=== PATIENT | male | born 1980 | race Caucasian/White ===

== ENCOUNTER 2018-09-28 09:12 | Inpatient (IN) | payer OTHER ==
[2018-09-28 11:51] VITALS: BMI 29.9
--- NOTE | 2018-09-28 11:55 | HP ---
COWS - Scale Resting Pulse: 1= OR 81-100 Sweatin= Chills/Flushing Restless Observation: 3= Extraneous Movement Pupil Size: 1= Pupils >than Normal Bone or Joint Aches: 2= Severe Diffuse Aches Runny Nose/ Eye Tearin= Runny Nose/Eyes GI Upset > 30mins: 2= Nausea/Diarrhea Tremor Observation: 2= Slight Tremor Visible Yawning Observation: 1= 1-2x During Session Anxiety or Irritability: 2=Irritable/Anxious Goose Flesh Skin: 0=Smooth Skin COWS Score: 17 CIWA Score - Admission Criteria [facility]ASAS Guidelines: Admission for Medically Managed Detox: Requires at least one of the followin. CIWA greater than 12 2. Seizures within the past 24 hours 3. Delirium tremens within the past 24 hours 4. Hallucinations within the past 24 hours 5. Acute intervention needed for co occurring medical disorder 6. Acute intervention needed for co occurring psychiatric disorder 7. Severe withdrawal that cannot be handled at a lower level of care (continued vomiting, continued diarrhea, abnormal vital signs) requiring intravenous medication and/or fluids 8. Admission ROS S - HPI Chief Complaint: i need help to stop using heroin,marijuana,cocaine Allergies/Adverse Reactions: Allergies Allergy/AdvReac Type Severity Reaction Status Date / Time No Known Allergies Allergy Verified 09/28/18 11:51 History of Present Illness: this 38 years old male with heroin,cocaine and marijuana dependence,seeking detox,withdrawal symptom,last detox 03/08 in [place] nicotine dependence longest period of sobriety 2 years Exam Limitations: No Limitations - Ebola screening Have you traveled outside of the country in the last 21 days: No (N) Have you had contact with anyone from an Ebola affected area: No Do you have a fever: No - Review of Systems Constitutional: Chills, Loss of Appetite, Malaise, Night Sweats, Changes in sleep, Weakness EENT: reports: Tearing, Nose Congestion Respiratory: reports: No Symptoms reported Cardiac: reports: Palpitations GI: reports: Diarrhea, Nausea, Vomiting, Abdominal cramping : reports: No Symptoms Reported Musculoskeletal: reports: Back Pain, Joint Pain, Muscle Pain, Joint Stiffness Integumentary: reports: Dryness Neuro: reports: Headache, Tremors Endocrine: reports: No Symptoms Reported Hematology: reports: No Symptoms Reported Psychiatric: reports: No Sypmtoms Reported, Judgement Intact, Mood/Affect Appropiate, Orientated x3 Patient History - Patient Medical History Hx Anemia: No Hx Asthma: No Hx Chronic Obstructive Pulmonary Disease (COPD): No Hx Cancer: No Hx Cardiac Disorders: No Hx Congestive Heart Failure: No Hx Hypertension: No Hx Hypercholesterolemia: No Hx Pacemaker: No HX Cerebrovascular Accident: No Hx Seizures: No Hx Dementia: No Hx Diabetes: No Hx Gastrointestinal Disorders: No Hx Liver Disease: No Hx Genitourinary Disorders: No Hx Sexually Transmitted Disorders: No Hx Renal Disease (ESRD): No Hx Thyroid Disease: No Hx Human Immunodeficiency Virus (HIV): No (last 08/08 negative) Hx Hepatitis C: No Hx Depression: No Hx Suicide Attempt: No Hx Bipolar Disorder: No Hx Schizophrenia: No Other Medical History: no suicidal,no homicidal - Patient Surgical History Past Surgical History: No - PPD History Previous Implant?: Yes Documented Results: Negative w/o proof Implanted On Prior [facility] Admission?: No PPD to be Administered?: Yes - Smoking Cessation Smoking history: Current every day smoker Have you smoked in the past 12 months: Yes Aproximately how many cigarettes per day: 20 Cigars Per Day: 0 Hx Chewing Tobacco Use: No Initiated information on smoking cessation: Yes 'Breaking Loose' booklet given: 09/28/18 - Substance & Tx. History Hx Alcohol Use: No Hx Substance Use: Yes Substance Use Type: Cocaine, Heroin, Marijuana Hx Substance Use Treatment: Yes (03/08 in [place]) - Substances Abused Heroin Route: Inhalation Frequency: Daily Amount used: 10 bags Age of first use: 36 Date of Last Use: 09/27/18 Marijuana/Hashish Route: Smoking Frequency: Daily Amount used: 20$ Age of first use: 17 Date of Last Use: 09/26/18 Cocaine Route: Inhalation Frequency: 1-2 times per week Amount used: 50$ Age of first use: 18 Date of Last Use: 09/25/18 Family Disease History - Family Disease History Family History: Denies Admission Physical Exam [facility] - Physical General Appearance: Yes: Moderate Distress, Tremorous, Irritable, Sweating, Anxious HEENTM: Yes: Normal ENT Inspection, Normocephalic, SERAFIN, Pharynx Normal Respiratory: Yes: Lungs Clear, Normal Breath Sounds, No Respiratory Distress Neck: Yes: Within Normal Limits, Supple, Trachea in good position Breast: Yes: Within Normal Limits Cardiology: Yes: Within Normal Limits, Regular Rhythm, Regular Rate, S1, S2 Abdominal: Yes: Within Normal Limits, Normal Bowel Sounds, Non Tender, Soft Genitourinary: Yes: Within Normal Limits Musculoskeletal: Yes: full range of Motion, Back pain, Joint Stiffness, Muscle Pain Extremities: Yes: Tremors 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
[2018-09-28] MEDS ORDERED: MAG HYDROX/AL HYDROX/SIMETH 30 ML UNIT-DOSE CUP PO PRN (12:04)
[2018-09-28] MEDS ORDERED: IBUPROFEN 400 MG TABLET (FP) PO PRN (12:04)
[2018-09-28] MEDS ORDERED: P-EPHED 60MG/TRIPROLIDI 2.5MG TABLET PO PRN (12:04)
[2018-09-28] MEDS ORDERED: guaiFENesin/D-METHORPHAN HB 10 ML UNIT-DOSE CUPS PO PRN (12:04)
[2018-09-28] MEDS ORDERED: MAGNESIUM HYDROX 2400MG/30ML ORAL SUSPENSION 30 ML CUP PO PRN (12:04)
[2018-09-28] MEDS ORDERED: MENTHOL/PHENOL 1 EACH UD MM PRN (12:04)
[2018-09-28] MEDS ORDERED: MAGNESIUM CITRATE 300 ML BOTTLE PO PRN (12:04)
[2018-09-28] MEDS ORDERED: LOPERAMIDE HCL 2 MG CAPSULE PO PRN (12:04)
[2018-09-28] MEDS ORDERED: ACETAMINOPHEN 325 MG TABLET (FP) PO PRN (12:04)
[2018-09-28] MEDS ORDERED: NICOTINE POLACRILEX 2 MG GUM BUC PRN (12:07)
[2018-09-28] MEDS: diazePAM 5 MG TABLET PO PRN ×3 (13:12→22:12)
[2018-09-28] MEDS: NICOTINE 21 MG/24 HOURS TOPICAL PATCH TD SCH (13:16)
[2018-09-28] MEDS ORDERED: METHADONE HCL 10 MG TABLET (FOR DETOX USE ONLY) PO ONE ×2 (13:30→23:00)
[2018-09-28 18:00] LABS: URINE APPEARANCE CLEAR; URINE BILIRUBIN NEGATIVE (<2.0 mg/dL); URINE COLOR YELLOW; URINE GLUCOSE (UA) NEGATIVE (NEGATIVE); URINE KETONE NEGATIVE (NEGATIVE); URINE LEUK ESTERASE NEGATIVE (NEGATIVE); URINE NITRITE NEGATIVE (NEGATIVE); URINE PROTEIN NEGATIVE (NEGATIVE); URINE UROBILINOGEN NEGATIVE mg/dL (0.2-1.0)
--- NOTE | 2018-09-28 21:16 | EKG ---
Test Reason : Blood Pressure : / mmHG Vent. Rate : 052 BPM Atrial Rate : 052 BPM P-R Int : 162 ms QRS Dur : 092 ms QT Int : 456 ms P-R-T Axes : 004 031 -02 degrees QTc Int : 424 ms SINUS BRADYCARDIA OTHERWISE NORMAL ECG NO PREVIOUS ECGS AVAILABLE Confirmed by STEFAN PUGA, MARIELA ([id number]) on 09/28/2018 9:16:27 PM Referred By: Confirmed By:MARIELA AVILES MD
[2018-09-28] MEDS: CYCLOBENZAPRINE HCL 10 MG TABLET (FP) PO PRN (22:12)
[2018-09-28] MEDS: MELATONIN 5 MG TABLETS PO PRN (22:12)
[2018-09-28] MEDS: THIAMINE HCL 100 MG TABLET (FP) PO SCH (22:12)
[2018-09-29] MEDS ORDERED: METHADONE HCL 10 MG TABLET (FOR DETOX USE ONLY) PO ONE (10:00)
[2018-09-29] MEDS: PRENATAL VITAMINS W/ FOLIC ACID TABLET (FP) PO SCH (10:34)
[2018-09-29] MEDS: diazePAM 5 MG TABLET PO PRN ×3 (10:34→22:04)
[2018-09-29 10:35] LABS: HEMATOCRIT 35.4 % (35.4-49); HEMOGLOBIN 12.5 GM/dL (11.7-16.9); MCH 34.8 pg (25.7-33.7); MCHC 35.4 g/dl (32.0-35.9); MEAN CELL VOLUME 98.2 fl (80-96); MEAN PLT VOLUME 7.9 fl (7.5-11.1); PLATELET COUNT 315 K/MM3 (134-434); RDW 12.5 % (11.9-15.9); WHITE BLOOD COUNT 7.5 K/mm3 (4.0-10.0)
[2018-09-29] MEDS: NICOTINE 21 MG/24 HOURS TOPICAL PATCH TD SCH (10:36)
[2018-09-29 11:16] LABS: ALBUMIN 2.9 g/dl (3.4-5.0); ALK PHOS 105 U/L (45-117); ANION GAP 7 MMOL/L (8-16); BILIRUBIN,TOTAL 0.1 mg/dL (0.2-1); BLOOD UREA NITROGEN 15 mg/dL (7-18); CALCIUM 8.1 mg/dL (8.5-10.1); CHLORIDE 104 mmol/L (98-107); CO2 30 mmol/L (21-32); CREATININE 1.1 mg/dL (0.55-1.3); GLUCOSE,RANDOM 103 mg/dL (74-106); POTASSIUM 3.8 mmol/L (3.5-5.1); SGOT/AST 27 U/L (15-37); SGPT/ALT 41 U/L (13-61); SODIUM 141 mmol/L (136-145); TOT PROT 5.5 g/dl (6.4-8.2)
--- NOTE | 2018-09-29 15:54 | PN ---
BHS COWS - Scale Resting Pulse: 0= [place] 80 or Below Sweatin= Chills/Flushing Restless Observation: 1= Difficult to Sit Still Pupil Size: 1= Pupils >than Normal Bone or Joint Aches: 2= Severe Diffuse Aches Runny Nose/ Eye Tearin= Nasal Congestion GI Upset > 30mins: 2= Nausea/Diarrhea Tremor Observation of Outstretched Hands: 2= Slight Tremor Visible Yawning Observation: 2= >3x During Session Anxiety or Irritability: 1=Feels Anxious/Irritable Goose Flesh Skin: 0=Smooth Skin COWS Score: 13 BHS Progress Note (SOAP) Subjective: sweat tremor body aches joints pain restlessness Objective: 09/29/18 15:52 Vital Signs Temperature 97.7 F 09/29/18 15:24 Pulse Rate 62 09/29/18 15:24 Respiratory Rate 18 09/29/18 15:24 Blood Pressure 109/58 L 09/29/18 15:24 O2 Sat by Pulse Oximetry (%) Laboratory Last Values WBC 7.5 K/mm3 (4.0-10.0) 09/29/18 07:15 RBC 3.60 M/mm3 (4.00-5.60) L 09/29/18 07:15 Hgb 12.5 GM/dL (11.7-16.9) 09/29/18 07:15 Hct 35.4 % (35.4-49) 09/29/18 07:15 MCV 98.2 fl (80-96) H 09/29/18 07:15 MCH 34.8 pg (25.7-33.7) H 09/29/18 07:15 MCHC 35.4 g/dl (32.0-35.9) 09/29/18 07:15 RDW 12.5 % (11.9-15.9) 09/29/18 07:15 Plt Count 315 K/MM3 (134-434) 09/29/18 07:15 MPV 7.9 fl (7.5-11.1) 09/29/18 07:15 Sodium 141 mmol/L (136-145) 09/29/18 07:15 Potassium 3.8 mmol/L (3.5-5.1) 09/29/18 07:15 Chloride 104 mmol/L (98-107) 09/29/18 07:15 Carbon Dioxide 30 mmol/L (21-32) 09/29/18 07:15 Anion Gap 7 MMOL/L (8-16) L 09/29/18 07:15 BUN 15 mg/dL (7-18) 09/29/18 07:15 Creatinine 1.1 mg/dL (0.55-1.3) 09/29/18 07:15 Creat Clearance w eGFR > 60 (>60) 09/29/18 07:15 Random Glucose 103 mg/dL (74-106) 09/29/18 07:15 Calcium 8.1 mg/dL (8.5-10.1) L 09/29/18 07:15 Total Bilirubin 0.1 mg/dL (0.2-1) L 09/29/18 07:15 AST 27 U/L (15-37) 09/29/18 07:15 ALT 41 U/L (13-61) 09/29/18 07:15 Alkaline Phosphatase 105 U/L (45-117) 09/29/18 07:15 Total Protein 5.5 g/dl (6.4-8.2) L 09/29/18 07:15 Albumin 2.9 g/dl (3.4-5.0) L 09/29/18 07:15 Urine Color Yellow 09/28/18 14:44 Urine Appearance Clear 09/28/18 14:44 Urine pH 6.0 (5.0-8.0) 09/28/18 14:44 Ur Specific [place] 1.026 (1.010-1.035) 09/28/18 14:44 Urine Protein Negative (NEGATIVE) 09/28/18 14:44 Urine Glucose (UA) Negative (NEGATIVE) 09/28/18 14:44 Urine Ketones Negative (NEGATIVE) 09/28/18 14:44 Urine Blood Negative (NEGATIVE) 09/28/18 14:44 Urine Nitrite Negative (NEGATIVE) 09/28/18 14:44 Urine Bilirubin Negative (<2.0 mg/dL) 09/28/18 14:44 Urine Urobilinogen Negative mg/dL (0.2-1.0) 09/28/18 14:44 Ur Leukocyte Esterase Negative (NEGATIVE) 09/28/18 14:44 RPR Titer Nonreactive (NONREACTIVE) 12/09/18 07:15 HIV 1&2 Antibody Screen Negative 09/29/18 07:15 HIV P24 Antigen Negative 09/29/18 07:15 lab noted low Ca++ Assessment: 09/29/18 15:53 withdrawal sx hypocalcemia Plan: continue detox [facility]
[2018-09-29] MEDS: CALCIUM 250MG/VIT-D 125 UNITS 1 COMBO TABLET PO SCH (22:04)
[2018-09-29] MEDS: THIAMINE HCL 100 MG TABLET (FP) PO SCH (22:04)
[2018-09-29] MEDS: MELATONIN 5 MG TABLETS PO PRN (22:04)
[2018-09-29] MEDS: CYCLOBENZAPRINE HCL 10 MG TABLET (FP) PO PRN (22:04)
[2018-09-30] MEDS ORDERED: METHADONE HCL 5 MG TABLET (FOR DETOX USE ONLY) PO ONE (10:00)
[2018-09-30] MEDS: NICOTINE 21 MG/24 HOURS TOPICAL PATCH TD SCH (10:08)
[2018-09-30] MEDS: PRENATAL VITAMINS W/ FOLIC ACID TABLET (FP) PO SCH (10:08)
[2018-09-30] MEDS: CALCIUM 250MG/VIT-D 125 UNITS 1 COMBO TABLET PO SCH ×2 (10:08→22:36)
--- NOTE | 2018-09-30 10:33 | PN ---
BHS COWS - Scale Resting Pulse: 0= [place] 80 or Below Sweatin=Flushed/Facial Moisture Restless Observation: 1= Difficult to Sit Still Pupil Size: 0= Normal to Room Light Bone or Joint Aches: 2= Severe Diffuse Aches Runny Nose/ Eye Tearin= Runny Nose/Eyes GI Upset > 30mins: 0= None Tremor Observation of Outstretched Hands: 2= Slight Tremor Visible Yawning Observation: 2= >3x During Session Anxiety or Irritability: 2=Irritable/Anxious Goose Flesh Skin: 0=Smooth Skin COWS Score: 13 BHS Progress Note (SOAP) Subjective: agitation sweats shakes interrupted sleep body aches irritable Objective: 09/30/18 10:32 Vital Signs Temperature 98.5 F 09/30/18 09:41 Pulse Rate 65 09/30/18 09:41 Respiratory Rate 18 09/30/18 09:41 Blood Pressure 102/50 L 09/30/18 09:41 O2 Sat by Pulse Oximetry (%) Laboratory Tests 09/28/18 09/29/18 09/29/18 14:44 07:15 07:15 WBC 7.5 RBC 3.60 L Hgb 12.5 Hct 35.4 MCV 98.2 H MCH 34.8 H MCHC 35.4 RDW 12.5 Plt Count 315 MPV 7.9 Sodium 141 Potassium 3.8 Chloride 104 Carbon Dioxide 30 Anion Gap 7 L BUN 15 Creatinine 1.1 Creat Clearance w eGFR > 60 Random Glucose 103 Calcium 8.1 L Total Bilirubin 0.1 L AST 27 ALT 41 Alkaline Phosphatase 105 Total Protein 5.5 L Albumin 2.9 L Urine Color Yellow Urine Appearance Clear Urine pH 6.0 Ur Specific [place] 1.026 Urine Protein Negative Urine Glucose (UA) Negative Urine Ketones Negative Urine Blood Negative Urine Nitrite Negative Urine Bilirubin Negative Urine Urobilinogen Negative Ur Leukocyte Esterase Negative RPR Titer HIV 1&2 Antibody Screen HIV P24 Antigen 09/29/18 09/29/18 07:15 07:15 WBC RBC Hgb Hct MCV MCH MCHC RDW Plt Count MPV Sodium Potassium Chloride Carbon Dioxide Anion Gap BUN Creatinine Creat Clearance w eGFR Random Glucose Calcium Total Bilirubin AST ALT Alkaline Phosphatase Total Protein Albumin Urine Color Urine Appearance Urine pH Ur Specific [place] Urine Protein Urine Glucose (UA) Urine Ketones Urine Blood Urine Nitrite Urine Bilirubin Urine Urobilinogen Ur Leukocyte Esterase RPR Titer Nonreactive HIV 1&2 Antibody Screen Negative HIV P24 Antigen Negative aaox3 ambulating no acute distress Assessment: 09/30/18 10:33 withdrawal sx Plan: continue detox increase fluids labs pending
[2018-09-30] MEDS: diazePAM 5 MG TABLET PO PRN ×2 (12:28→22:36)
[2018-09-30] MEDS: THIAMINE HCL 100 MG TABLET (FP) PO SCH (22:36)
[2018-10-01] MEDS ORDERED: METHADONE HCL 5 MG TABLET (FOR DETOX USE ONLY) PO ONE (10:00)
[2018-10-01] MEDS: PRENATAL VITAMINS W/ FOLIC ACID TABLET (FP) PO SCH (10:41)
[2018-10-01] MEDS: NICOTINE 21 MG/24 HOURS TOPICAL PATCH TD SCH (10:41)
[2018-10-01] MEDS: CALCIUM 250MG/VIT-D 125 UNITS 1 COMBO TABLET PO SCH ×2 (10:42→22:24)
[2018-10-01] MEDS: diazePAM 5 MG TABLET PO PRN (11:11)
[2018-10-01] MEDS ORDERED: hydrOXYzine PAMOATE 50 MG CAPSULE (FP) PO PRN (12:47)
--- NOTE | 2018-10-01 12:49 | PN ---
BHS Progress Note (SOAP) Subjective: sweats interrupted sleep anxiety Objective: 10/01/18 12:48 Vital Signs Temperature 97.4 F L 10/01/18 09:58 Pulse Rate 61 10/01/18 09:58 Respiratory Rate 18 10/01/18 09:58 Blood Pressure 106/54 L 10/01/18 09:58 O2 Sat by Pulse Oximetry (%) aaox3 ambulating no acute distress Assessment: 10/01/18 12:48 withdrawal sx Plan: continue detox increase fluids visitiril 50mg prn
[2018-10-01] MEDS: THIAMINE HCL 100 MG TABLET (FP) PO SCH (22:24)
[2018-10-02] MEDS ORDERED: METHADONE HCL 10 MG TABLET (FOR DETOX USE ONLY) PO ONE (10:00)
[2018-10-02] MEDS: CALCIUM 250MG/VIT-D 125 UNITS 1 COMBO TABLET PO SCH ×2 (10:22→22:17)
[2018-10-02] MEDS: NICOTINE 21 MG/24 HOURS TOPICAL PATCH TD SCH (10:22)
[2018-10-02] MEDS: PRENATAL VITAMINS W/ FOLIC ACID TABLET (FP) PO SCH (10:22)
--- NOTE | 2018-10-02 13:40 | PN ---
BHS Progress Note (SOAP) Subjective: feeling better anxiety Objective: 10/02/18 13:39 Vital Signs Temperature 99.3 F 10/02/18 13:23 Pulse Rate 78 10/02/18 13:23 Respiratory Rate 18 10/02/18 13:23 Blood Pressure 127/79 10/02/18 13:23 O2 Sat by Pulse Oximetry (%) aaox3 ambulating no acute distress Assessment: 10/02/18 13:39 mild withdrawal sx Plan: continue detox increase fluids d/c at 7am
[2018-10-02] MEDS: THIAMINE HCL 100 MG TABLET (FP) PO SCH (22:16)
[2018-10-02] MEDS: MELATONIN 5 MG TABLETS PO PRN (22:17)
[2018-10-03] MEDS ORDERED: METHADONE HCL 5 MG TABLET (FOR DETOX USE ONLY) PO ONE (06:00)
[2018-10-03 07:40] VITALS: BP 112/59; PULSE 66; TEMP 97.7
--- NOTE | 2018-10-03 10:53 | DS ---
[facility] Detox Discharge Summary Admission Date: 09/28/18 Discharge Date: 10/03/18 - History Present History: Cannabis Dependence, Cocaine Dependence, Opioid Dependence - Physical Exam Results Vital Signs: Vital Signs Temperature 97.7 F 10/03/18 07:39 Pulse Rate 66 10/03/18 07:39 Respiratory Rate 18 10/03/18 07:39 Blood Pressure 112/59 L 10/03/18 07:39 O2 Sat by Pulse Oximetry (%) - Treatment Hospital Course: Detox Protocol Followed, Detoxed Safely, Responded well, Discharged Condition Good, Rehab Referral Accepted - Medication Discharge Medications: Ambulatory Orders NK [No Known Home Medication] 09/28/18 - Diagnosis (1) Cannabis dependence Status: Chronic (2) Cocaine dependence Status: Chronic Qualifiers: Substance use status: uncomplicated Qualified Code(s): F14.20 - Cocaine dependence, uncomplicated (3) Nicotine dependence Status: Chronic Qualifiers: Nicotine product type: cigarettes Substance use status: uncomplicated Qualified Code(s): F17.210 - Nicotine dependence, cigarettes, uncomplicated (4) Opioid dependence with withdrawal Status: Chronic - AMA Did Patient Leave Against Medical Advice: No (referred to [facility])
== END 2018-10-03 08:10 | disposition home or self-care (01) | DRG 773 ==
LOC: YASAS 09:12 → Y6N 12:05
PROC: HZ2ZZZZ Detoxification Services for Substance Abuse Treatment (ICD-10-PCS; principal; 2018-09-28)
DX: F11.23 Opioid dependence with withdrawal (principal); F14.20 Cocaine dependence, uncomplicated; F12.20 Cannabis dependence, uncomplicated; F17.210 Nicotine dependence, cigarettes, uncomplicated; E83.51 Hypocalcemia
CPT/HCPCS: 36415; 80053; 81003; 85027; 86593; 87389; 93005; 93010